=== PATIENT | female | born 2000 | race Caucasian/White ===

== ENCOUNTER 2022-02-22 23:40 | Emergency (ER) | payer MEDICAID ==
[~2022-02-22] VITALS: Ht 157.5 cm; Wt 72.6 kg
[~2022-02-22 23:40] MED LIST: CEPH250C16 PO; CLIN300C2 PO
[2022-02-22 23:58] VITALS: BP 134/68
--- NOTE | 2022-02-23 00:03 | NUR ---
TO LOBBY FOLLOWING TRIAGR
[2022-02-23] MEDS ORDERED: AMOX-999 PO (00:55)
[2022-02-23] MEDS ORDERED: AMOXIL/CLAVULANATE 500/125 MG 1 TAB PO ONE (01:00)
[2022-02-23] MEDS ORDERED: AMOXICILLIN 500 MG CAP ONE (01:40)
--- NOTE | 2022-02-23 01:43 | NUR ---
CALLED TO TRIAGE FOR MEDICATION, NO ANSWER
== END 2022-02-23 01:43 | disposition home or self-care (01) ==
LOC: MED 23:40
DX: L73.9 Follicular disorder, unspecified (principal)
CPT/HCPCS: 99283